=== PATIENT | female | born 1965 | race African-American/Black ===

== ENCOUNTER 2016-11-19 18:39 | Inpatient (IN) ==
--- NOTE | 2016-11-19 19:31 | Emergency Department Note ---
Arrival - Arrival Chief Complaint: Chest Pain Stated Complaint: CHEST DISCOMFORT ED Nursing Triage Note: Pt to triage with c/o chest tightness that begin on Sunday that comes. Pt states she does get SOB, but denies any n/v. Mode of Arrival: Ambulatory Time Seen by Provider: 11/19/16 19:28 - History of Present Illness HPI Narrative: This is a 51-year-old female of descent with type 2 diabetes, hyperlipidemia, hypertension who presents with chest pressure for the past 3 days associated with shortness of breath. She has had no diaphoresis nausea or vomiting. She had a colonoscopy 2 weeks ago where she was told that she was having skipped beats. She had a stress test more than 16 years ago which was normal. The patient has not had any exertional chest discomfort. The reason she came to the emergency department is because her chest pain has persisted. Allergies/Adverse Reactions: Allergies Allergy/AdvReac Type Severity Reaction Status Date / Time aspirin Allergy ITCHING Verified 11/19/16 18:57 Home Medications: Home Medications Medication Instructions Recorded Confirmed Type Insulin Aspart Prot/Asp 70/30 35 unit SUBCUT TID 11/19/16 11/19/16 History [NovoLOG Mix 70/30] Metformin HCl 1,000 mg PO BID 11/19/16 11/19/16 History Omeprazole 20 mg PO DAILY 11/19/16 11/19/16 History Potassium Chloride [Klor-Con 10] 10 meq PO BID 11/19/16 11/19/16 History Simvastatin 10 mg PO 11/19/16 History cloNIDine TAB [Catapres Tab] 0.1 mg PO BEDTIME 11/19/16 11/19/16 History dilTIAZem HCl [Diltiazem ER] 360 mg PO 11/19/16 History hydroCHLOROthiazide 25 mg PO DAILY 11/19/16 11/19/16 History [Hydrochlorothiazide] Review of System - Review of System Constitutional: Absent: fever, night sweats Eyes: Absent: redness, vision change Head/Ears/Nose/Throat: Absent: epistaxis, nasal drainage Respiratory: Absent: cough, wheezing Cardiovascular: Present: chest pain. Absent: dyspnea on exertion, orthopnea Gastrointestinal: Absent: diarrhea, constipation Genitourinary female: Present: dyspareunia. Absent: dysuria, urgency Musculoskeletal: Absent: arm pain, arthralgia Skin: Absent: change in color, change in hair/nails Neurological: Absent: numbness, paresthesias Psychiatric: Absent: anxiety, depression Endocrine: Absent: heat intolerance, polydipsia Hematological/Lymphatic: Absent: easy bruising, lymphadenopathy Allergic/Immunologic: Absent: urticaria Medical,Surgical,& Family Hx - Medical History Cardio: History of: Hypertension Endocrine: History of: Diabetes Mellitus (IDDM), Dyslipidemia - Surgical History Abdominal Surgeries: Surgical HX of: Cholecystectomy (2012) Reproductive Surgeries: Surgical HX of;: Tubal Ligation - Social History Smoking Status: Never smoker Frequency of Alcohol Use: None Type of Drug Use: None Exam Vital Signs: Vital Signs Temperature 97.4 F L 11/19/16 19:15 Pulse Rate 64 11/19/16 19:15 Respiratory Rate 18 11/19/16 19:15 Blood Pressure 176/80 11/19/16 19:15 O2 Sat by Pulse Oximetry 100 11/19/16 19:15 - Head Head exam: Present: atraumatic, normocephalic - Eye Eye exam: Present: PERRL, EOMI - ENT ENT exam: Present: normal exam, normal oropharynx - Neck Neck exam: Present: normal inspection, full ROM - Chest Chest inspection: Present: normal inspection - Respiratory Respiratory exam: Present: normal lung sounds bilaterally - Cardiovascular Cardiovascular exam: Present: regular rate, normal rhythm - Abdominal Exam Abdominal exam: Present: soft, normal bowel sounds - Extremities Exam Extremities exam: Present: normal inspection, full ROM - Back Exam Back exam: Present: normal inspection, full ROM - Neurological Exam Neurological exam: Present: alert, oriented X3, CN II-XII intact - Psychiatric Psychiatric exam: Present: normal affect, normal mood - Skin Skin exam: Present: warm, dry
[2016-11-19] MEDS ORDERED: NITROGLYCERIN 2% OINT 1 INCH/GM PACK TOP STA (19:32)
[2016-11-19] MEDS ORDERED: NITROGLYCERIN 2% OINT 1 INCH/GM PACK TOP ONE (19:37)
--- NOTE | 2016-11-19 19:54 | XRay Report ---
Portable chest Date: 11/19/2016 Clinical history: Chest pain Comparison: None Technique: Portable AP sitting chest Findings: The heart is borderline in size with probable cardiac fat pads. Calcified granulomata/nodes. Minimal degenerative changes. Impression: Borderline cardiomegaly with cardiac fat pads. No acute cardiopulmonary pathology identified. PROCEDURE INTERPRETED AT [facility] DEPARTMENT OF RADIOLOGY Final Report Signed by: Dr. Frida Resendiz
[2016-11-19] MEDS ORDERED: DEXTROSE 50% 25 GM/50 ML SYRINGE IV PRN (21:34)
[2016-11-19] MEDS ORDERED: GLUCAGON 1 MG VIAL IM PRN (21:34)
[2016-11-19] MEDS ORDERED: ONDANSETRON 4 MG/2 ML VIAL IV PRN (21:34)
[2016-11-19 21:36] LABS: Basophils # 0.1 10*3/uL (0.0-0.2); Basophils % 0.7 % (0.0-0.8); Eosinophils # 0.4 10*3/uL (0.0-0.87); Eosinophils % 4.7 % (0.00-10.9); Hematocrit 35.1 VOL% (35.7-47.0); Hemoglobin 11.7 GM/DL (12.0-16.0); Immature Granulocytes % 0.2 %; Immature Granulocytes Absolute 0.02 #; Lymphocytes # 3.3 10*3/uL (1.4-4.0); Lymphocytes % 39.4 % (21.3-54.2); Mean Corpuscular HGB Conc 33.3 GM/DL (32-36); Mean Corpuscular Hemoglobin 27 PG (27-34); Mean Corpuscular Volume 80.3 FL (87-102); Mean Platelet Volume 11.4 FL (9.6-12.0); Monocytes # 0.5 10*3/uL (0.11-0.8); Monocytes % 5.9 % (1.7-12.7); Neutrophils # 4.2 10*3/uL (1.4-7.4); Neutrophils % 49.1 % (38.7-73.9); Platelet Count 286 T/CUMM (130-400); Red Blood Count 4.37 MC/CUMM (3.8-5.5); Red Cell Distribution Width 16.4 % (9.3-17.3); White Blood Count 8.5 T/CUMM (4-12)
[2016-11-19 23:03] LABS: Alanine Aminotransferase 29 U/L (13-56); Albumin 3.4 G/DL (3.4-5.0); Alkaline Phosphatase 96 U/L (45-117); Aspartate Amino Transferase 18 U/L (0-37); Bilirubin,Total < 0.39 MG/DL (0.2-1.0); Blood Urea Nitrogen 12 MG/DL (7-18); Calcium 9.5 MG/DL (8.5-10.1); Glucose 133 MG/DL (74-106); Osmolality,Calculated 284.1 MOS/KG (273-304); Potassium 3.4 MMOL/L (3.5-5.1); Sodium 142 MMOL/L (136-145); Total Protein 7.3 G/DL (6.4-8.3); Troponin I Only < 0.015 NG/ML (0.00-0.045)
[2016-11-20] MEDS: INSULIN REGULAR 100 UNIT/ML SUBCUT SCH ×4 (00:27→18:46)
[2016-11-20 01:50] LABS: Troponin I Only < 0.015 NG/ML (0.00-0.045)
--- NOTE | 2016-11-20 02:31 | EKG Report ---
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
--- NOTE | 2016-11-20 02:32 | EKG Report ---
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
[2016-11-20 05:50] LABS: Troponin I Only < 0.015 NG/ML (0.00-0.045)
--- NOTE | 2016-11-20 08:16 | Internal Med History&Physical ---
Assessment and Plan (1) Chest pressure Status: Acute Assessment and plan: 51-year-old female admitted to acute care * Chest pressure. She describes it more of a pressure then pain. It is not related to exertion. Her EKG is nonspecific and cardiac enzymes are negative. She has multiple risk factors. Will consult cardiology to evaluate. She will need a stress test. * Diabetes. Will continue her insulin. Her last hemoglobin A1c was 8.2 in the office on October 18 * Hyperlipidemia. She will be continued on simvastatin * Hypertension. Blood pressure is stable * Diabetic neuropathy. Continue Neurontin * GERD. Continue Prilosec * Discussed with patient and her daughter Current Visit: Yes (2) Diabetes Status: Acute Current Visit: Yes (3) Hypertension Status: Acute Current Visit: Yes (4) GERD (gastroesophageal reflux disease) Status: Acute Current Visit: Yes (5) Dyslipidemia Status: Acute Current Visit: Yes (6) Diabetic neuropathy Status: Acute Current Visit: Yes History of Present Illness Chief complaint: Chest discomfort and tightness History of present illness: Ms. Shaw is a 51 year old female with history of hypertension, hyperlipidemia , diabetes who presented to the emergency room with chest pressure and feeling of heaviness for past 3 days. At times it was associated with shortness of breath. She denied any diaphoresis, nausea or vomiting. She denies any radiation of chest discomfort. She also describes it as a burning type pain at times. She first felt it while she was at her wedding rehearsal on Sunday night. There were no relieving or aggravating factors. There was no pleuritic component. She has no history of coronary artery disease. Patient does not smoke or drink alcohol. Home Medications Medication Instructions Recorded Confirmed Type Furosemide Tab [Lasix Tab] 40 mg PO DAILY PRN 11/19/16 11/19/16 History Insulin Aspart Prot/Asp 70/30 35 unit SUBCUT TID 11/19/16 11/19/16 History [NovoLOG Mix 70/30] Losartan/Hydrochlorothiazide 1 each PO DAILY 11/19/16 11/19/16 History [Losartan-Hctz 100-25 mg Tab] Metformin HCl 1,000 mg PO BID 11/19/16 11/19/16 History Omeprazole 20 mg PO DAILY 11/19/16 11/19/16 History Potassium Chloride [Klor-Con 10] 10 meq PO BID 11/19/16 11/19/16 History Simvastatin 10 mg PO DAILY 11/19/16 11/19/16 History cloNIDine TAB [Catapres Tab] 0.1 mg PO BEDTIME 11/19/16 11/19/16 History dilTIAZem HCl [Diltiazem ER] 360 mg PO DAILY 11/19/16 11/19/16 History Allergies Allergy/AdvReac Type Severity Reaction Status Date / Time aspirin Allergy ITCHING Verified 11/19/16 18:57 Medical,Surgical,& Family Hx - Medical History Cardio: History of: Hypertension Endocrine: History of: Diabetes Mellitus (IDDM), Dyslipidemia Gastrointestinal: History of: GERD - Surgical History Abdominal Surgeries: Surgical HX of: Cholecystectomy (2012) Reproductive Surgeries: Surgical HX of;: Tubal Ligation - Family History Family History: Reports;: Family Diabetes, Family Heart Disease, Family Hypertension - Social History Smoking Status: Never smoker Frequency of Alcohol Use: None Type of Drug Use: None Marital Status: Lives With:: Spouse Functional capacity: independent ambulation 12 point system: reviewed and no additional remarkable complaints except as stated (As mentioned in HPI) Exam - Constitutional Vitals: Period Temp Pulse Resp BP Sys/Matthews Pulse Ox Last 24 Hr 97 F-97.6 F 46-75 16-20 138-176/69-80 94-100 Exam: Examination: GENERAL: NAD. HEENT: PERRLA. EOMI. Mucous membranes are moist. NECK: Neck is supple. No JVD. No carotid bruit. No thyromegaly. CVS: Regular rate and rhythm. S1 and S2 are normal. No chest wall tenderness RESPIRATORY: Lungs are clear. No rales or rhonchi. ABDOMEN: Soft and nontender. Bowel sounds are present. No hepatosplenomegaly. EXT: No edema. Peripheral pulses are present. MINE ENGINEER: Patient is awake, alert and oriented to time place and person. Cranial nerves II through XII are grossly intact. Motor strength is 5 over 5 both upper and lower extremities. SKIN: Warm and dry. MSK: No obvious deformity. Results - Labs CBC & BMP: 11/19/16 19:22 11/19/16 22:29 Lab Results: I have reviewed the past 24 hour labs Quality Measures - VTE Contraindication to Pharmacological VTE Prophylaxis: Active Bleeding
--- NOTE | 2016-11-20 08:21 | EKG Report ---
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
[2016-11-20] MEDS ORDERED: FUROSEMIDE 40 MG TABLET PO PRN (08:22)
[2016-11-20] MEDS ORDERED: PNEUMOCOCCAL VACCINE (23 VALENT) 0.5 ML VIAL IM ONE (09:00)
[2016-11-20] MEDS: POTASSIUM CHLORIDE 10 MEQ TABLET PO SCH ×2 (09:00→21:19)
[2016-11-20] MEDS: LOSARTAN/HCTZ 50-12.5 MG TABLET PO SCH (09:00)
[2016-11-20] MEDS: DILTIAZEM CD 180 MG CAPSULE PO SCH (09:00)
[2016-11-20] MEDS: INSULIN ASPART PROTAMINE/ASPART 70/30 100 UNIT/ML SUBCUT SCH ×3 (09:01→21:20)
[2016-11-20] MEDS: SIMVASTATIN 10 MG TABLET PO SCH (09:01)
[2016-11-20] MEDS: metFORMIN 500 MG TABLET PO SCH ×2 (09:01→21:20)
[2016-11-20] MEDS: PANTOPRAZOLE 40 MG TABLET PO SCH (09:01)
--- NOTE | 2016-11-20 09:23 | Cardiology Consult Note ---
Assessment and Plan - Time spent with patient Time spent with patient: Greater than 30 minutes (Due to assessment, plan, and documentation.) (1) Atypical chest pain Status: Acute Assessment and plan: See plan of care listed below. Current Visit: Yes (2) Hypertension Status: Chronic Assessment and plan: See plan of care listed below. Current Visit: Yes (3) Dyslipidemia Status: Chronic Assessment and plan: See plan of care listed below. Current Visit: Yes (4) Diabetes Status: Chronic Assessment and plan: See plan of care listed below. Current Visit: Yes (5) GERD (gastroesophageal reflux disease) Status: Chronic Assessment and plan: See plan of care listed below. Current Visit: Yes (6) Obesity (BMI 30-39.9) Status: Chronic Assessment and plan: See plan of care listed below. Current Visit: Yes History of Present Illness - Data of Consult Patient: new to practice Consult date: 11/19/16 Requesting Physician: Tristan Bello Primary care physician: Clifford Silverman - Consult Narrative Reason for consult: chest pain History of present illness: Lace Cutter: new richy Malloy PCP: Dr. Silverman Ms. Shaw is a 51 year old female with risk factors significant for: hypertension, diabetes, dyslipidemia, obesity, and sedentary lifestyle. She also has a history of GERD and diabetic neuropathy. She has been seen in the remote past by Dr. Malloy and Dr. Douglas (over 10-15 years ago ) and has had 2 negative stress tests in the past, most recently 07/21/02. She has no family history of heart disease. Ms. Shaw presented to the emergency room with complaints of chest discomfort, onset of Sunday. She reports she was at her niece's wedding rehearsal when she developed a midsternal chest tightness. She tells me she has also felt as though this pain will radiate into her right and left chest wall but does not go into her shoulders, arms, neck, or jaw. This pain usually lasts for less than 5-10 minutes and goes away on its own. It is not associated with rest or exertion and she has no associated symptoms with it. She denies recent exertional chest pain or shortness of breath. She states that the pain came and went on Sunday night. She was pain free on Sunday. On Matt, she woke up " not feeling well" and then developed chest pain which came and went all day. She reports she also felt as if she had some nasal congestion yesterday that made it difficult to breathe. Her discomfort is nonreproducible. This morning, she has had an episode of midsternal chest "burning" that lasted for a few seconds and subsided. She states this pain tends to occur at random times and has no association with mealtimes or bedtime. She reports she does have occasional BLE but denies dizziness, lightheadedness, palpitations, diaphoresis , nausea, or vomiting. She has had negative cardiac biomarkers and unremarkable EKGs. After discussing with Dr. Malloy, we will continue to monitor her throughout the day and begin treatment for atypical chest pain. She has had negative stress tests in the past, but the last was 14 years ago. We will plan to repeat this on an outpatient basis ( or Sunday) for her to follow up with Dr. Malloy in 4-6 weeks. She will need to continue PPI. ASSESSMENT/PLAN: 1. ATYPICAL CHEST PAIN - Patient describes atypical features of chest pain. She has had negative cardiac biomarkers and unremarkable EKGs. Given her risk factors, it is felt she would benefit from repeat outpatient stress testing for risk factor stratification. We will continue to monitor. She has been started on treatment for possible chest wall pain in hopes of improving her symptoms. 2. HYPERTENSION - Currently well controlled. Continue current plan of care. Will monitor and adjust accordingly. 3. HYPERLIPIDEMIA - Continue lipid lowering agent. Lipid panel in AM. 4. DIABETES - She is on sliding scale insulin with accuchecks. 5. GERD - Patient reports she has not had a flare up in years. Continue PPI. 7. OBESITY - Chronic. Encouraged lifestyle modifications with diet and exercise. CC: Clifford Silverman MD - Home Medications and Allergies Home Medications: Home Medications Medication Instructions Recorded Confirmed Type Furosemide Tab [Lasix Tab] 40 mg PO DAILY PRN 11/19/16 11/19/16 History Insulin Aspart Prot/Asp 70/30 35 unit SUBCUT TID 11/19/16 11/19/16 History [NovoLOG Mix 70/30] Losartan/Hydrochlorothiazide 1 each PO DAILY 11/19/16 11/19/16 History [Losartan-Hctz 100-25 mg Tab] Metformin HCl 1,000 mg PO BID 11/19/16 11/19/16 History Omeprazole 20 mg PO DAILY 11/19/16 11/19/16 History Potassium Chloride [Klor-Con 10] 10 meq PO BID 11/19/16 11/19/16 History Simvastatin 10 mg PO DAILY 11/19/16 11/19/16 History cloNIDine TAB [Catapres Tab] 0.1 mg PO BEDTIME 11/19/16 11/19/16 History dilTIAZem HCl [Diltiazem ER] 360 mg PO DAILY 11/19/16 11/19/16 History Allergies/Adverse Reactions: Allergies Allergy/AdvReac Type Severity Reaction Status Date / Time aspirin Allergy ITCHING Verified 11/19/16 18:57 Review of systems: - Constitutional: Present: As per HPI. Absent: anorexia, chills, daytime sleepiness, excessive sweating, fever(s), frequent falls, headache(s), increased appetite, lethargy, malaise, night sweats, stops breathing during sleep, weakness, weight gain, weight loss, fatigue. - EENT Eyes: Present: As per HPI. Absent: blurry vision, diplopia, loss of vision Ears: Present: As per HPI. Absent: decreased hearing, ear discharge, ear pain Nose, mouth and throat: Present: nasal congestion, As per HPI. Absent: dysphagia , epistaxis, headache(s), hoarseness, lip swelling, neck mass, neck pain, sinus pressure, sore throat, throat swelling, tongue swelling, vertigo - Cardiovascular: Present: chest pain at rest, edema, as per HPI. Absent: chest pain with activity, dyspnea, dyspnea on exertion, claudication, diaphoresis, radiating jaw, neck or arm pain, lightheadedness, orthopnea, palpitations, PND - Respiratory: Present: as per HPI. Absent: dyspnea, dyspnea on exertion, cough , hemoptysis, wheezing, snoring, pain on inspiration - Gastrointestinal: Present: As per HPI. Absent: abdominal pain, bloating, change in bowel habits, constipation, diarrhea, heartburn, hematemesis, hematochezia, loose stools, melena, nausea, vomiting - Genitourinary: Present: As per HPI. Absent: difficulty urinating, dysuria, flank pain, hematuria, nocturia, urinary frequency, urinary incontinence - Musculoskeletal: Present: As per HPI. Absent: arthralgias, back pain, joint swelling, limited range of motion, muscle cramps, muscle weakness, myalgias - Neurological: Present: As per HPI. Absent: abnormal gait, abnormal speech, behavioral changes, confusion, convulsions, disequilibrium, dizziness, focal weakness, frequent falls, headache(s), memory loss, numbness, paresthesias, radicular pain, syncope, tremor(s) - Psychiatric: Present: As per HPI. Absent: anxiety, confusion, depression, panic attacks - Endocrine: Present: As per HPI. Absent: cold intolerance, fatigue, heat intolerance, polydipsia, polyphagia - Hematologic/Lymphatic: Present: As per HPI. Absent: easy bleeding, easy bruising, lymphadenopathy Medical,Surgical,& Family Hx - Medical History Cardio: History of: Hypertension Endocrine: History of: Diabetes Mellitus (IDDM), Dyslipidemia Gastrointestinal: History of: GERD - Surgical History Abdominal Surgeries: Surgical HX of: Cholecystectomy (2012) Reproductive Surgeries: Surgical HX of;: Tubal Ligation - Family History Family History: Reports;: Family Cancer, Family Diabetes, Family Hypertension - Social History Smoking Status: Never smoker Frequency of Alcohol Use: None Type of Drug Use: None Marital Status: Lives With:: Spouse Functional capacity: independent ambulation Physical Examination Vital Signs Temp Pulse Resp BP Pulse Ox 97.4 F L 64 18 176/80 99 11/19/16 18:54 11/19/16 18:54 11/19/16 18:54 11/19/16 18:54 11/19/16 18:54 Exam: General appearance: Pleasant and cooperative. Overweight, no acute distress. Head exam: Present: normal inspection, normocephalic, atraumatic. Absent: hematoma, laceration Eye exam: Present: EOMI. Absent: conjunctival injection, nystagmus, periorbital swelling, scleral icterus, laceration to eyelids Pupils: Present: PERRL. Absent: constricted, dilated, fixed, irregular, unequal ENT exam: Present: normal exam, normal external ear exam Neck exam: Present: normal inspection. Absent: lymphadenopathy, meningismus, tenderness, thyromegaly, carotid bruit Respiratory exam: Present: clear to auscultation bilaterally. Absent: accessory muscle use, chest wall tenderness, rales, rhonchi, wheezing. Cardiovascular exam: Present: regular rate and rhythm. Absent: gallop, JVD, rubs, murmur GI/Abdominal exam: Present: normal bowel sounds, soft. Absent: distended, firm , guarding, hernia, mass, tenderness, rebound. Extremities exam: Present: normal inspection, normal capillary refill. Upper extremity pulses 2+. Lower extremity pulses 2+. Absent: calf tenderness, edema Musculoskeletal: Present: No Fluid Collection, No Pain, Normal Range of Motion Back exam: Present: normal inspection. Absent: muscle spasm, vertebral tenderness Neurological exam: Present: alert, oriented X3, grossly intact without resting or essential tremor Psychiatric exam: Present: normal affect, normal mood Skin exam: Present: normal color, warm, dry, intact. Absent: cyanosis, diaphoretic, rash, urticaria Result/EKG - Labs CBC & BMP: 11/19/16 19:22 11/19/16 22:29 Lab Results: I have reviewed the past 24 hour labs Labs: Laboratory Results - last 24 hr 11/19/16 11/19/16 11/19/16 19:22 19:22 19:22 WBC 8.5 RBC 4.37 Hgb 11.7 L Hct 35.1 L MCV 80.3 L MCH 27 MCHC 33.3 RDW 16.4 Plt Count 286 MPV 11.4 Neut % (Auto) 49.1 Lymph % (Auto) 39.4 Dawes % (Auto) 5.9 Eos % (Auto) 4.7 Baso % (Auto) 0.7 Neut # (Auto) 4.2 Lymph # (Auto) 3.3 Dawes # (Auto) 0.5 Eos # (Auto) 0.4 Baso # (Auto) 0.1 Immature Gran % 0.2 Nucleated RBC % 0.0 Immature Gran # 0.02 Nucleated RBCs # 0.00 Immature Plt Fraction 4.8 Sodium Potassium Chloride Carbon Dioxide Anion Gap BUN Creatinine GFR Calculation BUN/Creatinine Ratio Glucose POC Glucose Calculated Osmolality Calcium Total Bilirubin AST ALT Alkaline Phosphatase Total Creatine Kinase CK-MB (CK-2) Troponin I < 0.015 B-Natriuretic Peptide 40 Total Protein Albumin Globulin Albumin/Globulin Ratio 11/19/16 11/19/16 11/20/16 22:29 22:29 00:27 WBC RBC Hgb Hct MCV MCH MCHC RDW Plt Count MPV Neut % (Auto) Lymph % (Auto) Dawes % (Auto) Eos % (Auto) Baso % (Auto) Neut # (Auto) Lymph # (Auto) Dawes # (Auto) Eos # (Auto) Baso # (Auto) Immature Gran % Nucleated RBC % Immature Gran # Nucleated RBCs # Immature Plt Fraction Sodium 142 Potassium 3.4 L Chloride 108 H Carbon Dioxide 28 Anion Gap 9.4 BUN 12 Creatinine 0.70 GFR Calculation 137 BUN/Creatinine Ratio 17.00 Glucose 133 H POC Glucose 110 H Calculated Osmolality 284.1 Calcium 9.5 Total Bilirubin < 0.39 AST 18 ALT 29 Alkaline Phosphatase 96 Total Creatine Kinase 205 H CK-MB (CK-2) 1.4 Troponin I < 0.015 B-Natriuretic Peptide Total Protein 7.3 Albumin 3.4 Globulin 3.9 H Albumin/Globulin Ratio 0.8 L 11/20/16 11/20/16 11/20/16 01:17 04:46 06:03 WBC RBC Hgb Hct MCV MCH MCHC RDW Plt Count MPV Neut % (Auto) Lymph % (Auto) Dawes % (Auto) Eos % (Auto) Baso % (Auto) Neut # (Auto) Lymph # (Auto) Dawes # (Auto) Eos # (Auto) Baso # (Auto) Immature Gran % Nucleated RBC % Immature Gran # Nucleated RBCs # Immature Plt Fraction Sodium Potassium Chloride Carbon Dioxide Anion Gap BUN Creatinine GFR Calculation BUN/Creatinine Ratio Glucose POC Glucose 123 H Calculated Osmolality Calcium Total Bilirubin AST ALT Alkaline Phosphatase Total Creatine Kinase 174 163 CK-MB (CK-2) 1.2 1.3 Troponin I < 0.015 < 0.015 B-Natriuretic Peptide Total Protein Albumin Globulin Albumin/Globulin Ratio - EKG EKG results: interpreted by me, sinus rhythm Quality Measures - VTE Contraindication to Pharmacological VTE Prophylaxis: Active Bleeding
[2016-11-20] MEDS: traMADol 50 MG TABLET PO SCH ×2 (11:56→21:20)
[2016-11-20] MEDS: ACETAMINOPHEN 325 MG TABLET PO SCH ×2 (12:00→21:19)
[2016-11-20 14:25] LABS: Troponin I Only < 0.015 NG/ML (0.00-0.045)
[2016-11-20] MEDS: GABAPENTIN 100 MG CAPSULE PO SCH ×2 (14:36→21:19)
[2016-11-20] MEDS ORDERED: GABAPENTIN 100 MG CAPSULE PO SCH (15:00)
[2016-11-20] MEDS ORDERED: POTASSIUM CHLORIDE 20 MEQ PACK PO ONE (15:14)
[2016-11-20] MEDS ORDERED: NAPROXEN 250 MG TABLET PO ONE (15:17)
[2016-11-20] MEDS ORDERED: cloNIDine 0.1 MG TABLET PO SCH (21:00)
[2016-11-21] MEDS: INSULIN REGULAR 100 UNIT/ML SUBCUT SCH ×3 (01:11→11:28)
[2016-11-21 05:57] LABS: Basophils # 0.1 10*3/uL (0.0-0.2); Basophils % 0.7 % (0.0-0.8); Eosinophils # 0.3 10*3/uL (0.0-0.87); Eosinophils % 3.4 % (0.00-10.9); Hematocrit 34.2 VOL% (35.7-47.0); Hemoglobin 11.2 GM/DL (12.0-16.0); Immature Granulocytes % 0.3 %; Immature Granulocytes Absolute 0.03 #; Lymphocytes # 3.9 10*3/uL (1.4-4.0); Lymphocytes % 39.7 % (21.3-54.2); Mean Corpuscular HGB Conc 32.7 GM/DL (32-36); Mean Corpuscular Hemoglobin 26 PG (27-34); Mean Corpuscular Volume 80.3 FL (87-102); Mean Platelet Volume 11.7 FL (9.6-12.0); Monocytes # 0.5 10*3/uL (0.11-0.8); Monocytes % 5.4 % (1.7-12.7); Neutrophils # 4.9 10*3/uL (1.4-7.4); Neutrophils % 50.5 % (38.7-73.9); Platelet Count 270 T/CUMM (130-400); Red Blood Count 4.26 MC/CUMM (3.8-5.5); Red Cell Distribution Width 16.3 % (9.3-17.3); White Blood Count 9.7 T/CUMM (4-12)
[2016-11-21 06:31] LABS: Calcium 9.1 MG/DL (8.5-10.1); Osmolality,Calculated 282.3 MOS/KG (273-304); Potassium 3.4 MMOL/L (3.5-5.1)
[2016-11-21 06:34] LABS: Risk Ratio 3.14
--- NOTE | 2016-11-21 07:08 | EKG Report ---
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
[2016-11-21 08:20] VITALS: BP 128/81
[2016-11-21] MEDS ORDERED: POTASSIUM CHLORIDE 10 MEQ TABLET PO SCH (09:00)
[2016-11-21] MEDS: DILTIAZEM CD 180 MG CAPSULE PO SCH (09:07)
[2016-11-21] MEDS: metFORMIN 500 MG TABLET PO SCH (09:07)
[2016-11-21] MEDS: LOSARTAN/HCTZ 50-12.5 MG TABLET PO SCH (09:07)
[2016-11-21] MEDS: GABAPENTIN 100 MG CAPSULE PO SCH (09:07)
[2016-11-21] MEDS: ACETAMINOPHEN 325 MG TABLET PO SCH (09:08)
[2016-11-21] MEDS: SIMVASTATIN 10 MG TABLET PO SCH (09:08)
[2016-11-21] MEDS: PANTOPRAZOLE 40 MG TABLET PO SCH (09:08)
[2016-11-21] MEDS: traMADol 50 MG TABLET PO SCH (09:08)
[2016-11-21] MEDS: INSULIN ASPART PROTAMINE/ASPART 70/30 100 UNIT/ML SUBCUT SCH (09:08)
--- NOTE | 2016-11-21 09:27 | Cardiology Progress Note ---
Assessment and Plan - Time spent with patient Time spent with patient: Less than 30 minutes (1) Atypical chest pain Status: Acute Assessment and plan: See plan of care listed below. Current Visit: Yes (2) Hypertension Status: Chronic Assessment and plan: See plan of care listed below. Current Visit: Yes (3) Dyslipidemia Status: Chronic Assessment and plan: See plan of care listed below. Current Visit: Yes (4) Diabetes Status: Chronic Assessment and plan: See plan of care listed below. Current Visit: Yes (5) GERD (gastroesophageal reflux disease) Status: Chronic Assessment and plan: See plan of care listed below. Current Visit: Yes (6) Obesity (BMI 30-39.9) Status: Chronic Assessment and plan: See plan of care listed below. 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 Silverman SUMMARY: 51 year old BF presents with atypical chest pain, onset Sunday. Risk factors are significant for: hypertension, diabetes, dyslipidemia, obesity, and sedentary lifestyle. She also has a history of GERD and diabetic neuropathy and has had 2 negative stress tests in the past (most recent 07/21/02). She has had negative cardiac biomarkers and unremarkable EKGs. We are treating her for GI, musculoskeletal pain. Plan for outpatient stress test or Sunday at [facility]. If stress test negative, may return to work on 11/27/16. She will need follow up with Dr. Malloy 4-6 weeks after discharge. NOVEMBER 21, 2016 UPDATE: Ms. Shaw has done well throughout the night. She does complain of some nausea yesterday evening and today with vomiting. She reports her last bowel movement was on Sunday but that is normal for her. She states that she has not been eating very much. Since she has been started on several new medications including pain medicines and has not been eating, this could be contributing to her discomfort. I have urged her to try some dry toast , along with salting crackers and Sprite Zero this morning to see if that helps her feel any better. She already has Zofran as needed for nausea. ASSESSMENT/PLAN: 1. ATYPICAL CHEST PAIN -her symptoms have improved since beginning treatment for musculoskeletal chest wall pain. She now complains of nausea, possibly related from not eating and taking pain medications. 2. HYPERTENSION - Currently well controlled. Continue current plan of care. Will monitor and adjust accordingly. 3. HYPERLIPIDEMIA - Continue lipid lowering agent. Lipid panel revealed triglycerides 140, cholesterol 138, LDL 74, HDL 44. 4. DIABETES - She is on sliding scale insulin with accuchecks. 5. GERD - Patient reports she has not had a flare up in years. Continue PPI. 7. OBESITY - Chronic. Encouraged lifestyle modifications with diet and exercise. Exam (Progress Note) - Constitutional Vitals: Period Temp Pulse Resp BP Sys/Matthews Pulse Ox Last 24 Hr 97 F-98.4 F 49-65 18-20 114-146/63-81 95-99 Exam: General: Present: Appears Well, No Apparent Distress. Pleasant and cooperative. HEENT: Present: PERRL, Normocephaly, atraumatic. Mucus Membranes Moist. No jaundice noted. Conjunctiva moist and clear. Neck: Present: Supple Neck, Midline Trachea, No Masses, No Bruit, No tenderness Cardiac: Present: Regular Rate and Rhythm, No Murmur Lungs: Present: clear to auscultation bilaterally, no wheezes, rhonchi, rales. Neuro: Present: Awake, alert, and oriented x3. Moves all extremities well without hemiparesis or paralysis. Grossly Intact. Absent: Resting Tremor, Essential Tremor Abdomen: Present: Soft, Active Bowel Sounds, No Masses, Non-Tender, nondistended. No abdominal bruit or thrill noted. Skin: Present: Clear. Absent: Rash, No skin breakdown. Back: Normal inspection, no vertebral tenderness. Musculoskeletal: Present: No Fluid Collection, No Pain, Normal Range of Motion Extremities: Present: Normal Gait, No Clubbing, No Cyanosis, Upper Extr. Pulses 2+, Lower Extr. Pulses 2+, No edema. Capillary refill less than 3 seconds. Result/EKG - Labs CBC & BMP: 11/21/16 05:45 11/21/16 05:45 Lab Results: I have reviewed the past 24 hour labs Labs: Laboratory Results - last 24 hr 11/20/16 11/20/16 11/20/16 11:41 13:51 13:52 WBC RBC Hgb Hct MCV MCH MCHC RDW Plt Count MPV Neut % (Auto) Lymph % (Auto) [place] % (Auto) Eos % (Auto) Baso % (Auto) Neut # (Auto) Lymph # (Auto) [place] # (Auto) Eos # (Auto) Baso # (Auto) Immature Gran % Nucleated RBC % Immature Gran # Nucleated RBCs # Immature Plt Fraction Sodium Potassium Chloride Carbon Dioxide Anion Gap BUN Creatinine GFR Calculation BUN/Creatinine Ratio Glucose POC Glucose 158 H Calculated Osmolality Calcium Magnesium 1.7 L Total Creatine Kinase 134 CK-MB (CK-2) < 1.0 Troponin I < 0.015 Triglycerides Cholesterol LDL Cholesterol VLDL Cholesterol HDL Cholesterol Heart Disease Risk Ratio 11/20/16 11/20/16 11/21/16 18:26 23:33 05:33 WBC RBC Hgb Hct MCV MCH MCHC RDW Plt Count MPV Neut % (Auto) Lymph % (Auto) [place] % (Auto) Eos % (Auto) Baso % (Auto) Neut # (Auto) Lymph # (Auto) [place] # (Auto) Eos # (Auto) Baso # (Auto) Immature Gran % Nucleated RBC % Immature Gran # Nucleated RBCs # Immature Plt Fraction Sodium Potassium Chloride Carbon Dioxide Anion Gap BUN Creatinine GFR Calculation BUN/Creatinine Ratio Glucose POC Glucose 204 H 186 H 142 H Calculated Osmolality Calcium Magnesium Total Creatine Kinase CK-MB (CK-2) Troponin I Triglycerides Cholesterol LDL Cholesterol VLDL Cholesterol HDL Cholesterol Heart Disease Risk Ratio 11/21/16 11/21/16 11/21/16 05:45 05:45 05:45 WBC 9.7 RBC 4.26 Hgb 11.2 L Hct 34.2 L MCV 80.3 L MCH 26 L MCHC 32.7 RDW 16.3 Plt Count 270 MPV 11.7 Neut % (Auto) 50.5 Lymph % (Auto) 39.7 [place] % (Auto) 5.4 Eos % (Auto) 3.4 Baso % (Auto) 0.7 Neut # (Auto) 4.9 Lymph # (Auto) 3.9 [place] # (Auto) 0.5 Eos # (Auto) 0.3 Baso # (Auto) 0.1 Immature Gran % 0.3 Nucleated RBC % 0.0 Immature Gran # 0.03 Nucleated RBCs # 0.00 Immature Plt Fraction 0.0 Sodium 141 Potassium 3.4 L Chloride 106 Carbon Dioxide 28 Anion Gap 10.4 BUN 12 Creatinine 0.80 GFR Calculation 117 BUN/Creatinine Ratio 15.00 Glucose 139 H POC Glucose Calculated Osmolality 282.3 Calcium 9.1 Magnesium Total Creatine Kinase CK-MB (CK-2) Troponin I Triglycerides 140 Cholesterol 138 LDL Cholesterol 74.0 VLDL Cholesterol 28.0 HDL Cholesterol 44 Heart Disease Risk Ratio 3.14 - EKG EKG results: interpreted by me, sinus rhythm Quality Measures - VTE Contraindication to Pharmacological VTE Prophylaxis: Active Bleeding Specialty Discharge - Follow Up or Referrals Follow up with: Warren Malloy MD [Physician] - 1 Month (Schedule for outpatient stress test on or Sunday. Follow up with Dr. Malloy 4-6 weeks after discharge. )
--- NOTE | 2016-11-21 09:43 | Discharge Summary ---
Hospital Course - Hospital Course Hospital Course: Patient is 51-year-old female with history of hypertension, hyperlipidemia, diabetes who presented to the emergency room with atypical chest pain. Patient was admitted with multiple risk factors. She had negative cardiac enzymes and no acute EKG changes. She was seen in consultation by cardiology who recommended patient to have an outpatient stress test. She was started on naproxen but it caused her to have some nausea and vomiting this morning. It is stopped. Her heart rate was noted on telemetry to go into 30s at night. Her last eye exam has been discontinued. She will be started on Norvasc 10 mg daily. I will see her in office in 1 week. Her blood sugars have been under good control. Diagnosis - Discharge Diagnosis (1) Chest pressure Status: Acute (2) Diabetes Status: Chronic (3) Hypertension Status: Chronic (4) GERD (gastroesophageal reflux disease) Status: Chronic (5) Dyslipidemia Status: Chronic (6) Diabetic neuropathy Status: Acute Specialty Discharge - Follow Up or Referrals Follow up with: Warren Malloy MD [Physician] - Discharge Plan - Discharge Data Disposition: Disch To Home/Self Care - Discharge Medications New amLODIPine [Norvasc] 10 mg PO DAILY #30 tablet Potassium Chloride Cap/Tab [K Dur] 10 meq PO TID #90 tablet Omeprazole 40 mg PO DAILY #30 capsule Continue cloNIDine TAB [Catapres Tab] 0.1 mg PO BEDTIME Insulin Aspart Prot/Asp 70/30 [NovoLOG Mix 70/30] 35 unit SUBCUT TID Simvastatin 10 mg PO DAILY Furosemide Tab [Lasix Tab] 40 mg PO DAILY PRN PRN Reason: Edema Metformin HCl 1,000 mg PO BID Losartan/Hydrochlorothiazide [Losartan-Hctz 100-25 mg Tab] 1 each PO DAILY Discontinued Potassium Chloride [Klor-Con 10] 10 meq PO BID Omeprazole 20 mg PO DAILY dilTIAZem HCl [Diltiazem ER] 360 mg PO DAILY - Follow Up or Referral Follow Up: Warren Malloy MD [Physician] - - Forms/Instructions Additional Discharge Instructions: Appointment in office in 1 week with TCM. Call in new medications on discharge Exam - Constitutional Vitals: Period Temp Pulse Resp BP Sys/Matthews Pulse Ox Last 24 Hr 97 F-98.4 F 49-65 18-20 114-146/63-81 95-99 Exam: Examination: GENERAL: NAD. NECK: Neck is supple. CVS: Regular rate and rhythm. No chest wall tenderness RESPIRATORY: Lungs are clear. ABDOMEN: Soft and nontender. EXT: No edema. 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 Discharge Results Labs on day of discharge: Labs from last 24 hours 11/21/16 11/21/16 11/21/16 05:45 05:45 05:45 WBC 9.7 RBC 4.26 Hgb 11.2 L Hct 34.2 L MCV 80.3 L MCH 26 L MCHC 32.7 RDW 16.3 Plt Count 270 MPV 11.7 Neut % (Auto) 50.5 Lymph % (Auto) 39.7 [place] % (Auto) 5.4 Eos % (Auto) 3.4 Baso % (Auto) 0.7 Neut # (Auto) 4.9 Lymph # (Auto) 3.9 [place] # (Auto) 0.5 Eos # (Auto) 0.3 Baso # (Auto) 0.1 Immature Gran % 0.3 Nucleated RBC % 0.0 Immature Gran # 0.03 Nucleated RBCs # 0.00 Immature Plt Fraction 0.0 Sodium 141 Potassium 3.4 L Chloride 106 Carbon Dioxide 28 Anion Gap 10.4 BUN 12 Creatinine 0.80 GFR Calculation 117 BUN/Creatinine Ratio 15.00 Glucose 139 H POC Glucose Calculated Osmolality 282.3 Calcium 9.1 Magnesium Total Creatine Kinase CK-MB (CK-2) Troponin I Triglycerides 140 Cholesterol 138 LDL Cholesterol 74.0 VLDL Cholesterol 28.0 HDL Cholesterol 44 Heart Disease Risk Ratio 3.14 11/21/16 11/20/16 11/20/16 05:33 23:33 18:26 WBC RBC Hgb Hct MCV MCH MCHC RDW Plt Count MPV Neut % (Auto) Lymph % (Auto) [place] % (Auto) Eos % (Auto) Baso % (Auto) Neut # (Auto) Lymph # (Auto) [place] # (Auto) Eos # (Auto) Baso # (Auto) Immature Gran % Nucleated RBC % Immature Gran # Nucleated RBCs # Immature Plt Fraction Sodium Potassium Chloride Carbon Dioxide Anion Gap BUN Creatinine GFR Calculation BUN/Creatinine Ratio Glucose POC Glucose 142 H 186 H 204 H Calculated Osmolality Calcium Magnesium Total Creatine Kinase CK-MB (CK-2) Troponin I Triglycerides Cholesterol LDL Cholesterol VLDL Cholesterol HDL Cholesterol Heart Disease Risk Ratio 11/20/16 11/20/16 11/20/16 13:52 13:51 11:41 WBC RBC Hgb Hct MCV MCH MCHC RDW Plt Count MPV Neut % (Auto) Lymph % (Auto) [place] % (Auto) Eos % (Auto) Baso % (Auto) Neut # (Auto) Lymph # (Auto) [place] # (Auto) Eos # (Auto) Baso # (Auto) Immature Gran % Nucleated RBC % Immature Gran # Nucleated RBCs # Immature Plt Fraction Sodium Potassium Chloride Carbon Dioxide Anion Gap BUN Creatinine GFR Calculation BUN/Creatinine Ratio Glucose POC Glucose 158 H Calculated Osmolality Calcium Magnesium 1.7 L Total Creatine Kinase 134 CK-MB (CK-2) < 1.0 Troponin I < 0.015 Triglycerides Cholesterol LDL Cholesterol VLDL Cholesterol HDL Cholesterol Heart Disease Risk Ratio DS: Provider Date of admission: 11/19/16 21:34 Primary care physician: . No PCP Attending physician on admission: Armida Jiménez MD Consults: 11/19/16 21:34 Consult to Physician [CONS] Routine Comment: Consulting Provider: Jayce De Paz Person Notified: [email or web address] Date Notified: 11/20/16 Time Notified: 07:40 Discharging clinician: Clifford Silverman MD
[2016-11-21] MEDS ORDERED: MAGNESIUM OXIDE 400 MG TABLET PO ONE (13:17)
== END 2016-11-21 14:16 | disposition home or self-care (01) | DRG 313 ==
LOC: N.ED 18:39 → N.EDINP 21:34 → N.TELES 22:11
PROVIDERS: ADMIT Family Medicine; ATTEND Internal Medicine